=== PATIENT | male | born 1940 | race Caucasian/White ===

== ENCOUNTER 2024-10-11 10:14 | Outpatient (AMB) | payer OTHER, SELFPAY ==
--- NOTE | 2024-10-11 10:21 | MHC.OFFVIS ---
Vital Signs 10/11/24 10:23 Height 5 ft 6 in Weight 159 lb 13.362 oz BMI 25.8 BP 110/68 Blood Pressure Location Lt brachial Position Sitting Pulse 68 Pulse Source Pulse Oximeter Pulse Oximetry (%) 97 Oxygen Delivery Method Room Air Intake Visit Reasons: dyspnea/cough Joint Terminal Attack Controller Required: No Accompanied by: Self / Same As Patient Allergies Penicillins Allergy (Intermediate, Verified 10/11/24 10:25) Unknown HPI Comments Details: The patient is here for pulmonary evaluation. The patient is an 83-year-old gentleman with a known history of asthma COPD presenting with a further evaluation. Apparently the patient has had worsening respiratory symptoms with chest congestion and dyspnea on exertion. [id number] severity. The patient has been on Symbicort with good response. And he has also been on Spiriva also with good response. Seems like the combination of those 2 inhalers have been very effective for him. He is wondering what other medications can be made available to help him with his breathing. He did undergo a CT scan of the chest which I personally reviewed at [facility] back in 2023. It is apparent that the patient does have some bronchiectatic changes primarily at the bases and also some interstitial changes in the bases. 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 The patient appears to have a raspy voice that clear how long he has had this raspy voice 4. He has not seen any changes with his voice at all. He denies any choking episodes or having any issues with dysphagia. And he also denies any dyspepsia. If he does have any particular foods that bother his his reflux he he would have heartburn then. But denies ever having any issues with aspiration. Not clear if he is at risk for microaspiration still specially with the changes from the lower lung zones. As far as his blood work he has had blood work back in 2022 at [facility] in the eosinophils I fear to be fairly stable around 200. Therefore the use it biologics are still in differential. Will go ahead and request additional blood work to see if he is still candidate for Dupixent on Nucala depending on the blood work. The patient also did have a pulmonary function study in 2024 which I personally reviewed. He appears to have a moderate obstruction consistent with moderate COPD. And also has a moderate diffusion impairment likely secondary to the interstitial changes in the airway disease noted on the CT scan. Based on the abnormal vocal cord and he has significant mucus plugging hypoxia we did talk about ways to visualize the vocal cords which will be with laryngoscopy or bronchoscopy. At this point the patient will be leaving to [place] in the end of November so will plan to do a bronchoscopy for airway survey and also deep cultures and also to visualize was going on with those lower lung zones and also to visualize was the vocal cords especially with raspiness in the concerns for microaspiration. [facility] Medical History (Updated 10/11/24 @ 21:23 by Emmett Jacobsen MD) ILD (interstitial lung disease) Asthma-COPD overlap syndrome Allergies Bronchiectasis Social History (Updated 10/11/24 @ 10:27 by Precious Richardson CMA) Patient Tobacco Use Status: Former Tobacco user Review of Systems Const Denies fever(s) Eyes Reports no additional complaints ENT Reports change in voice Card Denies chest pain and Reports dyspnea on exertion Resp Reports chest congestion, Reports cough, Reports dyspnea on exertion and Reports wheezing GI Reports dyspepsia Musc Reports no additional complaints Skin/Breast Denies rash Eren/Lymph Reports no additional complaints Aller/Immun Reports wheezing Physical Exam Vital Signs: Last Vital Signs Pulse 68 10/11/24 10:23 BP 110/68 10/11/24 10:23 Pulse Ox 97 10/11/24 10:23 Oxygen Delivery Method Room Air 10/11/24 10:23 BMI result Body Mass Index 25.8 Const General: comfortable HEENT Head: Yes normocephalic Neck Neck: Yes supple Chest Chest palpation & inspection: normal inspection of the chest Resp Effort & Inspection: normal respiratory effort Auscultation: diminished lung sounds Cardio Heart sounds: S1 normal heart sound present and S2 normal heart sound present GI Palpation (GI): Soft to palpation Skin General skin exam: no rashes or lesions noted Extrem General: Yes no clubbing, cyanosis or edema Results Reviewed Results Reviewed: Personally reviewed CT chest with bronchiectasis, emphysema, subcentemeter pulmonary nodules, ILD ?laryngeal polypoid lesion Assessment & Plan Assessment & Plan (1) Bronchiectasis: Code(s): J47.9 - Bronchiectasis, uncomplicated Category: Medical Qualifiers: Bronchiectasis type: uncomplicated Qualified Code(s): J47.9 - Bronchiectasis, uncomplicated (2) Allergies: Code(s): T78.40XA - Allergy, unspecified, initial encounter Category: Medical Qualifiers: Encounter type: initial encounter Qualified Code(s): T78.40XA - Allergy, unspecified, initial encounter (3) Asthma-COPD overlap syndrome: Code(s): J44.89 - Other specified chronic obstructive pulmonary disease Category: Medical (4) ILD (interstitial lung disease): Code(s): J84.9 - Interstitial pulmonary disease, unspecified Category: Medical Plan continue Symbicort and Spiriva JOHNY as needed start Nebulizer daily with lebalbuterol followed by acapella valve for CPT Bronchosocpy for assessment of the larynx, airway survey and therapeutic cleaning start Low dose Daliresp F/U 2 months Orders: Orders Cyclic Citrullinated Peptide Today J47.9 - Bronchiectasis, uncomplicated Immunoglobulin E Today J47.9 - Bronchiectasis, uncomplicated Immunoglobulin G Subclasses Today J47.9 - Bronchiectasis, uncomplicated Hypersensitive Pneumonitis Prf Today J47.9 - Bronchiectasis, uncomplicated, R91.8 - Other nonspecific abnormal finding of lung field Complete Blood Count Auto Diff Today J47.9 - Bronchiectasis, uncomplicated Resp Allergy Profile Region I Today J47.9 - Bronchiectasis, uncomplicated, R91.1 - Solitary pulmonary nodule, T78.40XA - Allergy, unspecified, initial encounter THUY Reflex Titer and Pattern Today J47.9 - Bronchiectasis, uncomplicated Erythrocyte Sedimentation Rate Today J47.9 - Bronchiectasis, uncomplicated Medications: New dupilumab (Dupixent) 300 mg (2 mL) subcut Q2W 4 mL 11RF 4 weeks albuterol sulfate 2.5 mg (3 mL) inhalation Q4H PRN 180 mL 11RF shortness of breath or wheezing 30 days levalbuterol HCl 1.25 mg (3 mL) inhalation BID 180 mL 6RF 30 days J44.9 - Chronic obstructive pulmonary disease, unspecified Coding Level of Care Code New Pt Level 5 (02254) Diagnoses Bronchiectasis without complication J47.9 Bronchiectasis type: uncomplicated Allergy, initial encounter T78.40XA Encounter type: initial encounter Asthma-COPD overlap syndrome J44.89 ILD (interstitial lung disease) J84.9 Time Spent (min) 60
[2024-10-11 10:23] VITALS: BP 110/68; PULSE 68; O2SAT 97; BMI 25.8
--- OUTSIDE RECORDS SUMMARY | 2024-10-11 11:32 | XMS_ITS | Patient Health Record ---
Author Organization [facility] Jessi mckeon Billing Info Address [address] [place] [id number] Support Name Relationship Address Phone Alejandro Bashir Guarantor Unknown [phone] Allergies Allergen (clinical drug ingredient) Drug/Non Drug Allergy documented on EMR Reaction Allergy Type Onset Date Status streptomycin Streptomycin Sulfate Unknown Drug Allergy Active azithromycin Azithromycin Unknown Drug Allergy A ctive penicillamine Penicillamine Unknown Drug Allergy Active Reason For Referral No Information Medications Medication SIG (Take, Route, Frequency, Duration) Notes Start Date End Date Status Atenolol 25 MG 1 tablet Orally Once a day Active Symbicort 160-4.5 MCG/ACT 2 puffs Inhala tion Twice a day Active Sumatriptan Succinate 50 MG 1 tablet at least 2 hours between doses as needed Orally Twice a day Active Immunizations Vaccine Route Administration Date Status Comme nts FLU (Past vaccine of unknown type) Unknown 11/07/2021 A dministered Social History Tobacco Use: Social History Observation Description Date Details (start date - stop date) Former Smoker NA - NA Tobacco Status: Question Answer Notes Patient is a former smoker Plan Of Treatment No Information Insurance Providers Payer Name Payer Address Payer Phone Subscriber Number Group Number Insured Name Patient Relationship to Insured Coverage Start Date Coverage End Date [facility] [address] [address] [facility] [place], [place] [id number] Alejandro Bashir Self - patient is the insured [employer] [address] [place], [place] [id number] Alejandro Bashir Self - patient is the insured Medical (General) History Medical History History ICD Code COPD migraines Arrhythmia insomnia Surgical History Surgery Date(Month/Year) back surgery prostatectomy Hospitalization History Reason Date(Month/Year) [facility] [place] 02/2022
== END 2024-10-11 11:13 | disposition home or self-care (01) ==
LOC: HO.HPS 10:14
PROVIDERS: PCP Internal Medicine; Visit Provider Hospitalist
DX: J47.9 Bronchiectasis, uncomplicated (principal); T78.40XA Allergy, unspecified, initial encounter; J44.89 Other specified chronic obstructive pulmonary disease; J84.9 Interstitial pulmonary disease, unspecified
CPT/HCPCS: 99205

== ENCOUNTER 2024-10-22 11:31 | Day surgery (SDC) | payer MEDICARE, SELFPAY ==
--- OUTSIDE RECORDS SUMMARY | 2024-10-15 15:49 | XMS_ITS | Patient Health Record ---
Author Organization [facility] Billing Info Address [address] [place] [id number] Support Name Relationship Address Phone Alejandro Bashir Guarantor Unknown Allergies Allergen (clinical drug ingredient) Drug/Non Drug [...] Insured Coverage Start Date Coverage End Date [facility] MEDIC[facility] COMPLETE [address] [address] [facility] [place], [place] [id number] [phone] [id number] Alejandro Bashir Self - patient is the insured [employer] [address] [place], [place] [id number] Alejandro Bashir Self - patient is the insured Medical (General) History Medical History History ICD Code COPD migraines Arrhythmia insomnia Surgical History Surgery Date(Month/Year) prostatectomy back surgery Hospitalization History Reason Date(Month/Year) [facility] [place]
[2024-10-18 12:09] VITALS: BMI 25.7
--- NOTE | 2024-10-18 15:17 | HO.ANESPROP2 ---
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 on [facility] CT Per pulmo H&P PMFSH Active Problems Active Problems: All Active Problems ILD (interstitial lung disease) (Acute) Asthma-COPD overlap syndrome (Acute) Allergies (Acute) Bronchiectasis (Acute) Past Medical History Medical History (Updated 10/18/24 @ 12:08 by Yasemin Cook RN) Prostate cancer SVT (supraventricular tachycardia) ILD (interstitial lung disease) Asthma-COPD overlap syndrome Allergies Bronchiectasis Social History Social History (Updated 10/11/24 @ 10:27 by Precious Richardson CMA) Are you a primary senior resident care director to a significant other at home: No Do you presently have visiting nurse or other home services: No Patient Tobacco Use Status: Former Tobacco user Use of substances other than those prescribed or required for medical reasons: No Have you been hit, kicked, punched, or otherwise hurt by someone within the past year? If so, by whom?: No Are you DNR?: No Advance Directives: No Advance Directives Information Provided: Yes Poor oral hygiene: No Meds Allergies Allergy/AdvReac Type Severity Reaction Status Date / Time Penicillins Allergy Intermediate Unknown Verified 10/22/24 13:11 Home Medications ?Medication ?Instructions ?Recorded ?Confirmed ?Last Taken ?Type atenolol 25 mg tablet 25 mg PO DAILY 10/11/24 10/22/24 Unknown History budesonide-formoterol HFA 160 2 puff inhalation BID 10/11/24 10/22/24 Unknown History mcg-4.5 mcg/actuation aerosol inhaler (Symbicort) lorazepam 1 mg tablet 1 mg PO DAILY PRN Anxiety 10/11/24 10/22/24 Unknown History sumatriptan succinate 50 mg tablet See Rx Instructions PO .COMPLEX 10/11/24 10/22/24 Unknown History Exam Height,Weight and Vital Signs: Height 5 ft 6 in Weight 72.121 kg Narrative Narrative: Chest CT IMPRESSION: Similar mild bilateral lower lobe bronchiectasis with associated atelectasis. No honeycombing or definite subpleural interstitial abnormality, although evaluation of the lung bases is limited by low lung volumes with associated atelectasis. Similar moderate centrilobular emphysema. Mild enlarged pulmonary arteries, which may indicate underlying pulmonary artery hypertension. ECHO 2023 Summary The left ventricular size is normal. Left ventricular wall thickness is normal. Normal LV systolic function. Ejection fraction is 55-65%. No obvious wall motion abnormalities seen on limited views. Indeterminate diastolic parameters. The right ventricle is normal in size and function. The pulmonary artery systolic pressure estimation is 35-40 mmHg. PFT 06/2024 INTERPRETATION: Mild obstruction. No significant response to bronchodilator. Gold category 1. The MVV is consistent with the level of FEV1. TLC is normal. The diffusing capacity is moderately reduced, although not adjusted for hemoglobin. The finding of obstruction with low DLCO is consistent with emphysema. But DLCO is disproportianely low, consider ILD or pulmonary vascular disease as additional pathology. Recommend check rest and walking O2 saturations as hypoxia can occur with DLCO this low. Recommend check hemoglobin to allow better estimation of predicted DLCO. Normal values are not well established for individuals of this age. Since 09/07/2022, lower FEV1 (-10%), FVC (-11%, -19% pred), unchanged TLC (+3%), DLCO [Unc] (+0%). Assessment and Plan Assessment Anesthesia Assessment: Chart Reviewed Documented by User: Tavares Au MD 10/22/24 14:13 [facility] Past Medical History Medical History (Updated 10/18/24 @ 12:08 by Yasemin Cook RN) Prostate cancer SVT (supraventricular tachycardia) ILD (interstitial lung disease) Asthma-COPD overlap syndrome Allergies Bronchiectasis Functional capacity: independent ambulation Family History Family history of problems with anesthesia: No Surgical History History of Problems with Anesthesia: Yes Social History Social History (Updated 10/11/24 @ 10:27 by Precious Richardson CMA) Are you a primary senior resident care director to a significant other at home: No Do you presently have visiting nurse or other home services: No Patient Tobacco Use Status: Former Tobacco user Use of substances other than those prescribed or required for medical reasons: No Have you been hit, kicked, punched, or otherwise hurt by someone within the past year? If so, by whom?: No Are you DNR?: No Advance Directives: No Advance Directives Information Provided: Yes Poor oral hygiene: No Travel History History of recent travel: No Recent Travel in [facility] Within the Last 8 Weeks: No Exposure or Possible Exposure to Illness During Travel: No History of Being in a Healthcare Facility as a Patient, Worker, or Visitor during Travel: No Meds Allergies Allergy/AdvReac Type Severity Reaction Status Date / Time Penicillins Allergy Intermediate Unknown Verified 10/22/24 13:11 Home Medications ?Medication ?Instructions ?Recorded ?Confirmed ?Last Taken ?Type atenolol 25 mg tablet 25 mg PO DAILY 10/11/24 10/22/24 Unknown History budesonide-formoterol HFA 160 2 puff inhalation BID 10/11/24 10/22/24 Unknown History mcg-4.5 mcg/actuation aerosol inhaler (Symbicort) lorazepam 1 mg tablet 1 mg PO DAILY PRN Anxiety 10/11/24 10/22/24 Unknown History sumatriptan succinate 50 mg tablet See Rx Instructions PO .COMPLEX 10/11/24 10/22/24 Unknown History Assessment and Plan Assessment Anesthesia Assessment: Anesthesia Plan Discussed Final Anesthetic Review Family History of Problems with Anesthesia: No History of Problems with Anesthesia: Yes NPO: Yes ASA Class: II Final Preanesthetic Review: No Changes in Pt Med Stat, Meds/Allgs Chart Reviewed, Consent Obtained/Reviewed and Anes Risks/Benef Reviewed Patient Risk: Intermediate Procedure Risk: Intermediate Anesthetic Plan Anesthetic Plan: MAC: and Agree w/ Assess. and Plan Disposition: Standard PACU
[2024-10-22] VITALS (7 sets, daily range): BP systolic 93–129; BP diastolic 47–81; PULSE 61–74; RESP 13–21; TEMP 36.3–37; O2SAT 95–100; BMI 25.0
--- NOTE | 2024-10-22 11:56 | MHC.SHP ---
Pre-Procedural Eval Section A - 24 Hr Update-Section A only Date of Service: 10/22/24 The patient is an INPATIENT: No Changes since office visit: No Cold of Flu in the past 2 weeks, No New Medical Problems, No Changes in Medication and No Patient answered all questions The patient has been examined within 24 hours of the surgical procedure. The History & Physical has been completed within 30 days and I have reviewed it.: Yes Section B - Complete if H&P > 30 days Chief Complaint: Bronchiectasis with (acute) exacerbation Allergies: Allergies Allergy/AdvReac Type Severity Reaction Status Date / Time Penicillins Allergy Intermediate Unknown Verified 10/11/24 10:25 Plan I have reviewed the history and physical and performed a pertinent physical examination on my patient. No changes have occurred unless specified. Time Spent With Patient Time: Total time managing care of this patient today ____ minutes.
[2024-10-22] MEDS: Lactated Ringers 1,000 ML 100 ML IVCONT (12:41)
--- NOTE | 2024-10-22 16:12 | P.BOP_ITS ---
Brief Operative Note Date of Service: 10/22/24 Pre-op diagnosis: Bronchiectasis Post-op diagnosis: other (Bronchiectasis; tracheal polypoid lesion, saber sheath trachea, chronic airway disease, chronic bronchitis) Procedure: Bronchoscopy with washings, brushings and forceps biopsy Implants: Surgeon: Emmett Jacobsen MD Anesthesia: GLMA Was an Vice President Risk Management used for this Procedure?: No Estimated blood loss (mL): 0 Pathology: other (Endotracheal biopsy) Condition: stable Disposition: same day
--- NOTE | 2024-10-23 02:33 | OP_ITS ---
DATE OF SERVICE: 10/22/2024 SURGEON: Emmett Jacobsen MD PREOPERATIVE DIAGNOSIS: Bronchiectasis. POSTOPERATIVE DIAGNOSIS: PROCEDURE PERFORMED: Bronchoscopy with washings, brushings x2, and forceps biopsy. ESTIMATED BLOOD LOSS: COMPLICATIONS: ANESTHESIA: LMA. ASSISTANTS: SPECIMENS: POSTOPERATIVE DIAGNOSES: Bronchiectasis, tracheal polyp, and chronic bronchitis. CARDROOM ATTENDANT: None. DESCRIPTION OF PROCEDURE: After the patient was adequately sedated, LMA in place, the flexible digital bronchoscope was inserted via the LMA to the level of the larynx. The larynx appeared to be erythematous. Vocal cords were symmetrical. No laryngeal lesions noted. After instilling lidocaine, the bronchoscope was navigated, passed the vocal cord to the level of the trachea. 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 In addition to just in the subglottic area, patient did have a polypoid lesion on the trachea anteriorly. After administering additional lidocaine, the bronchoscope was navigated to the entire tracheobronchial tree that was examined up to the segmental level. No other endobronchial lesions. The patient did have inflammation throughout the airways and moderate degree of mucoid secretions throughout, which was easily suctioned. Some slight more inflammation noted in the area of the left upper lobe. Using a brush, it was introduced into the right lower lobe area for microbiology specimens. Then the patient also had another brush administered to the left upper lobe, which was brushed the endobronchial area in the left upper lobe, where it is most inflamed for cytology. Bronchial washings were collected bilaterally both for microbiology and for cytology. After the airways were cleared out of mucoid secretions as much as could be done safely, the bronchoscope was then navigated to the proximal trachea where using forceps, the polypoid lesion anteriorly of the trachea was removed. It appeared that upon pressure, when the forceps grabbed the polypoid lesion, it opened up and removed a granule out, which was then collected and sent to Pathology. No evidence of any residual polypoid left in the area. The bronchoscope was then removed. The total endoscopic time, 15 minutes. Patient tolerated the procedure well without any complications noted. MD BRODIE Mars/CHRISTIANO / [id number]
== END 2024-10-22 16:15 | disposition home or self-care (01) ==
PROVIDERS: PCP Nurse Practitioner; Visit Provider Hospitalist
PROC: 0BJ08ZZ Inspection of Tracheobronchial Tree, Via Natural or Artificial Opening Endoscopic (ICD-10-PCS; CPT 31622; principal; 2024-10-22 14:00)
DX: J47.9 Bronchiectasis, uncomplicated (principal); J84.9 Interstitial pulmonary disease, unspecified; J44.89 Other specified chronic obstructive pulmonary disease; D14.2 Benign neoplasm of trachea; R06.09 Other forms of dyspnea; R91.1 Solitary pulmonary nodule; Z91.09 Other allergy status, other than to drugs and biological substances; Z79.51 Long term (current) use of inhaled steroids; Z79.899 Other long term (current) drug therapy; Z88.0 Allergy status to penicillin; Z87.891 Personal history of nicotine dependence
CPT/HCPCS: 31625; 31623; 87070; 87102; 87116; 87205; 87206; 88112; 88305; J0165; J2003; J2704; J3010

== ENCOUNTER → 2024-10-22 11:31 | Outpatient (BNV) | payer MEDICARE, SELFPAY | PROVIDERS: PCP Nurse Practitioner; Visit Provider Hospitalist | DX: J47.9 Bronchiectasis, uncomplicated (principal); J41.0 Simple chronic bronchitis; D14.2 Benign neoplasm of trachea | CPT/HCPCS: 31623; 31625 ==

== ENCOUNTER 2024-11-22 13:32 | Outpatient (AMB) | payer OTHER, SELFPAY ==
[2024-11-22 13:51] VITALS: BP 116/68; PULSE 71; O2SAT 96; BMI 25.1
--- NOTE | 2024-11-22 13:51 | A.OFFVIS_ITS ---
Vital Signs 11/22/24 13:51 Height 5 ft 6 in Weight 155 lb 6.814 oz BMI 25.1 BP 116/68 Blood Pressure Location Lt brachial Position Sitting Pulse 71 Pulse Source Pulse Oximeter Pulse Oximetry (%) 96 Oxygen Delivery Method Room Air Intake Visit Reasons: Dyspnea/Cough Cut Off Tender Glass Required: No Accompanied by: Self / Same As Patient Allergies Penicillins Allergy (Intermediate, Verified 11/22/24 13:54) Unknown HPI Comments Details: The patient is an 84-year-old gentleman with a known history of asthma COPD presenting with a further evaluation. Apparently the patient has had worsening respiratory symptoms with chest congestion and dyspnea on exertion. [id number] severity. The patient has been on Symbicort with good response. And he has also been on Spiriva also with good response. Seems like the combination of those 2 inhalers have been very effective for him. He is wondering what other medications can be made available to help him with his breathing. He did undergo a CT scan of the chest which I personally reviewed at [facility] back in 2023. It is apparent that the patient does have some bronchiectatic changes primarily at the bases and also some interstitial changes in the bases. 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 The patient appears to have a raspy voice that clear how long he has had this raspy voice 4. He has not seen any changes with his voice at all. He denies any choking episodes or having any issues with dysphagia. And he also denies any dyspepsia. If he does have any particular foods that bother his his reflux he he would have heartburn then. But denies ever having any issues with aspiration. Not clear if he is at risk for microaspiration still specially with the changes from the lower lung zones. As far as his blood work he has had blood work back in 2022 at [facility] in the eosinophils I fear to be fairly stable around 200. Therefore the use it biologics are still in differential. Will go ahead and request additional blood work to see if he is still candidate for Dupixent on Nucala depending on the blood work. The patient also did have a pulmonary function study in 2024 which I personally reviewed. He appears to have a moderate obstruction consistent with moderate COPD. And also has a moderate diffusion impairment likely secondary to the interstitial changes in the airway disease noted on the CT scan. Based on the abnormal vocal cord and he has significant mucus plugging hypoxia we did talk about ways to visualize the vocal cords which will be with laryngoscopy or bronchoscopy. At this point the patient will be leaving to [place] in the end of November so will plan to do a bronchoscopy for airway survey and also deep cultures and also to visualize was going on with those lower lung zones and also to visualize was the vocal cords especially with raspiness in the concerns for microaspiration. 11/22/2024 the patient is here for a pulmonary follow-up visit. Overall he is doing well. He is status post bronchoscopy. The bronchoscopy did demonstrate significant mucus secretions throughout his airways. Moderate severity. Did have therapeutic cleaning of the airways. All the cultures were sent and was negative for any infectious process. He did have increased colonization with respiratory cristian. The patient also had a small little polypoid area that was biopsied and was just cartilage tissue. In addition to that washings and brushings for cytopathology was negative for any malignant processes. Just benign respiratory cristian and alveolar macrophages. He was placed on the Daliresp. But then he started developing back pain and therefore he stopped it. Did not have too much GI symptoms with it. He can always welcome to revisit again after his symptoms subside and can try it again. He understands that this medication is may for chronic bronchitis and will help decrease the mucus burden and also with the sister of psoriasis. The patient also is able to start azithromycin 3 times a week to treat him for the chronic bronchitis and bronchiectasis with the hopes of decreasing the inflammation of the airways and also decreasing the respiratory cristian overgrowth. He also has a nebulizer. He is going to take it to [place] where he is going to practice and use it with his Acapella valve for chest PT and mucus clearance. He understands that the more he can clear the phlegm the LEs inflammation or irritation is going to cause him in the lungs. Therefore this point he will try the azithromycin 3 times week for 4 weeks. If he notices that that helps him and he wants to continue a little bit longer he would have to call and we have to make sure has an EKG in order to continue that medication safely. If it does not help him he can restart the Daliresp. But if he does not tolerate it again and if we can not increase it to the therapeutic dose then we can also consider other medications such as Budesonide nebs, Ohtuvaye or the new Medication, Brensupri. [facility] Medical History (Updated 10/18/24 @ 12:08 by Yasemin Cook RN) Prostate cancer SVT (supraventricular tachycardia) ILD (interstitial lung disease) Asthma-COPD overlap syndrome Allergies Bronchiectasis Social History Are you a primary career guidance technician to a significant other at home: No Do you presently have visiting nurse or other home services: No Patient Tobacco Use Status: Former Tobacco user Review of Systems Const Denies fever(s) Eyes Reports no additional complaints ENT Reports change in voice Card Denies chest pain and Reports dyspnea on exertion Resp Reports chest congestion, Reports cough, Reports dyspnea on exertion and Reports wheezing GI Reports dyspepsia Musc Reports no additional complaints Skin/Breast Denies rash Eren/Lymph Reports no additional complaints Aller/Immun Reports wheezing Physical Exam Vital Signs: Last Vital Signs Pulse 71 11/22/24 13:51 BP 116/68 11/22/24 13:51 Pulse Ox 96 11/22/24 13:51 Oxygen Delivery Method Room Air 11/22/24 13:51 BMI result Body Mass Index 25.1 Const General: comfortable HEENT Head: Yes normocephalic Neck Neck: Yes supple Chest Chest palpation & inspection: normal inspection of the chest Resp Effort & Inspection: normal respiratory effort Auscultation: diminished lung sounds Cardio Heart sounds: S1 normal heart sound present and S2 normal heart sound present GI Palpation (GI): Soft to palpation Skin General skin exam: no rashes or lesions noted Extrem General: Yes no clubbing, cyanosis or edema Assessment & Plan Assessment & Plan (1) Bronchiectasis: Code(s): J47.9 - Bronchiectasis, uncomplicated Category: Medical Qualifiers: Bronchiectasis type: uncomplicated Qualified Code(s): J47.9 - Bronchiectasis, uncomplicated (2) Allergies: Code(s): T78.40XA - Allergy, unspecified, initial encounter Category: Medical Qualifiers: Encounter type: initial encounter Qualified Code(s): T78.40XA - Allergy, unspecified, initial encounter (3) Asthma-COPD overlap syndrome: Code(s): J44.89 - Other specified chronic obstructive pulmonary disease Category: Medical (4) ILD (interstitial lung disease): Code(s): J84.9 - Interstitial pulmonary disease, unspecified Category: Medical Plan continue Symbicort and Spiriva JOHNY as needed Nebulizer daily with lebalbuterol followed by acapella valve for CPT start Azitihromycin MWF x 1 month restart Low dose Daliresp if no better consider Budesonide nebs or Ohtuvayre F/U 6 months Medications: New azithromycin Take 1 tablet on Tuesday/Tuesday/Tuesday 250 mg PO 3XW 12 tabs 0RF 28 days K21.9 - Gastro-esophageal reflux disease without esophagitis Coding Level of Care Code Est Pt Level 4 (28250) Complex EM visit Add On G2211 Diagnoses Bronchiectasis without complication J47.9 Bronchiectasis type: uncomplicated Allergy, initial encounter T78.40XA Encounter type: initial encounter Asthma-COPD overlap syndrome J44.89 ILD (interstitial lung disease) J84.9 Time Spent (min) 18
--- OUTSIDE RECORDS SUMMARY | 2024-11-22 17:10 | XMS_ITS | Patient Health Record ---
Author Organization [facility] Billing Info Address [address] [place] [id number] Support Name Relationship Address Phone Alejandro Bashir Guarantor Unknown [phone] Allergies Allergen (clinical drug ingredient) Drug/Non [...] Insured Coverage Start Date Coverage End Date [facility] MEDICARE COMPLETE [address] [address] [facility] [place] [id number] [phone] [id number] Alejandro Bashir Self - patient is the insured [employer] [address] [place], [place] [id number] [phone] [id number] Alejandro Bashir Self - patient is the insured Medical (General) History Medical History History ICD Code COPD migraines Arrhythmia insomnia Surgical History Surgery Date(Month/Year) prostatectomy back surgery Hospitalization History Reason Date(Month/Year) [facility] 02/2022
== END 2024-11-22 14:23 | disposition home or self-care (01) ==
LOC: HO.HPS 13:32
PROVIDERS: PCP Internal Medicine; Visit Provider Hospitalist
DX: J47.9 Bronchiectasis, uncomplicated (principal); T78.40XA Allergy, unspecified, initial encounter; J44.89 Other specified chronic obstructive pulmonary disease; J84.9 Interstitial pulmonary disease, unspecified
CPT/HCPCS: 99214